=== PATIENT | female | born 1935 | race Caucasian/White ===

== ENCOUNTER 2025-02-20 09:25 | Emergency (ER) | payer OTHER ==
[~2025-02-20] VITALS: Ht 152.4 cm; Wt 50.0 kg
[2025-02-20 09:28] VITALS: TEMP 98.1
[2025-02-20 10:13] LABS: BASOPHILS % (AUTO) 0.6 % (0-1); EOSINOPHILS # (AUTO) 0.2 X10'3 (0-0.9); HEMATOCRIT 33.5 % (35.0-45.0); HEMOGLOBIN 11.4 g/dl (12.0-16.0); LYMPHOCYTES # (AUTO) 1.3 X10'3 (1.1-4.8); LYMPHOCYTES % (AUTO) 15.5 % (21-51); MEAN CORPUSCULAR HEMOGLOBIN 30.1 PG (27.0-31.0); MEAN CORPUSCULAR VOLUME 88.4 FL (78-98); MEAN PLATELET VOLUME 7.6 FL (7.4-10.4); MONOCYTES # (AUTO) 0.9 X10'3 (0-0.9); MONOCYTES % (AUTO) 10.6 % (2-12); NEUTROPHILS # (AUTO) 5.9 X10'3 (1.8-7.7); NEUTROPHILS % (AUTO) 71.3 % (42-75); PLATELET COUNT 259 X10'3 (140-440); RED BLOOD COUNT 3.79 X10'6 (4.20-5.60); RED CELL DISTRIBUTION WIDTH 14.1 % (11.5-14.5); WHITE BLOOD COUNT 8.2 X10'3 (4.5-11.0)
[2025-02-20 10:30] LABS: BILIRUBIN,URINE NEGATIVE (Neg); CLARITY,URINE SLIGHTLY CLOUDY (Clear); COLOR,URINE YELLOW (Yellow); GLUCOSE, URINE NEGATIVE (Neg); KETONES,URINE NEGATIVE (Neg); LEUKOCYTE ESTERASE ,URINE LARGE (Neg); NITRITES, URINE POSITIVE (Neg); OCCULT BLOOD,URINE MODERATE (Neg); PROTEIN,URINE 30 mg/dl (Neg); UROBILINOGEN,URINE 0.2 E.U/dL (0.2-1.0)
[2025-02-20 10:33] LABS: UA COLLECTION TYPE FOLEY CATH
[2025-02-20 10:35] LABS: ALANINE AMINOTRANSFERASE 9 U/L (12-78); ALBUMIN 3.3 G/DL (3.4-5.0); ALBUMIN/GLOBULIN RATIO 0.9 (1.1-1.5); ALKALINE PHOSPHATASE 90 IU/L (46-116); ANION GAP 10 (8-16); ASPARTATE AMINO TRANSFERASE 16 U/L (10-37); BILIRUBIN,TOTAL 0.5 MG/DL (0.1-1.0); BLOOD UREA NITROGEN 25 MG/DL (7-18); BUN/CREATININE RATIO 15.2 (10.0-20.0); CALCIUM 9.4 MG/DL (8.5-10.1); CHLORIDE 105 MMOL/L (99-107); CREATININE 1.64 MG/DL (0.40-0.90); GLUCOSE 109 MG/DL (70-104); LIPASE 36 U/L (16-77); POTASSIUM 4.1 MMOL/L (3.5-5.1); SODIUM 141 MMOL/L (135-145); TOTAL CARBON DIOXIDE 25.7 MMOL/L (24-32); TOTAL PROTEIN 6.9 G/DL (6.4-8.2); eCRCL 17 ML/MIN; eGFR 30 ML/MIN
[2025-02-20 10:36] LABS: BACTERIA,URINE 4+ /HPF (Neg); SQUAMOUS EPITHELIAL CELL,UR FEW /LPF (FEW); WBC,URINE 50-100 /HPF (0-4)
--- NOTE | 2025-02-20 11:00 | Physician Documentation ---
History of Present Illness ~ Chief Complaint: Blood in Urine Stated Complaint: BLOOD IN URINE Time Seen by MD: 09:32 Source: patient (Son), family HPI 89-year-old female presenting for bloody urine. Patient reports feeling unwell. She has history of dementia Medication Reconciliation Scheduled Cephalexin (Cephalexin), 1 CAP PO Q6H Review of Systems Constitutional: Denies: fever Gastrointestinal: Denies: abdominal pain, nausea, vomiting, diarrhea Genitourinary: Reports: dysuria; Denies: flank pain Musculoskeletal: Denies: back pain Physical Exam Vital Signs: Temperature: 98.1, Source: Oral, Heart Rate: 74, Respiratory Rate: 18, BP: 119/65, Pulse Oximetry: 96, Weight: 50.000 Physical Exam Well-appearing no distress resting comfortably in bed No JVD Moist mucous membranes Pulmonary clear to auscultation bilaterally Cardiac no murmur Abdomen is soft nontender Lower extremity no edema Awake alert oriented Progress Progress Note Labs independently interpreted showed no leukocytosis. Positive cystitis Results/Orders Results/Orders Orders - JOANN RODRIGUEZ MD Cult Urine + [place] [address] (02/20/25 10:37) * (A) [place]- Protocol * Q12H@07,19 (02/20/25 10:55) Urinalysis, Cult If Indicated (02/20/25 10:55) Completed Orders - JOANN RODRIGUEZ MD Cbc/Diff (02/20/25 09:54) Lipase (02/20/25 09:54) CMP (02/20/25 09:54) Ua W/Microscopic, Cult If Ind (02/20/25 10:05) Lidocaine 2% Jelly 11ml Syr (Glydo-Lidoc (02/20/25 10:55) Cephalexin Capsule (Keflex Capsule) (02/20/25 11:05) Vital Signs 02/20/25 09:28 Temp 98.1 Pulse 74 Resp 18 B/P (MAP) 119/65 Pulse Ox 96 Laboratory Tests Test 02/20/25 09:46 02/20/25 10:05 White Blood Count 8.2 Red Blood Count 3.79 L Hemoglobin 11.4 L Hematocrit 33.5 L Mean Corpuscular Volume 88.4 Mean Corpuscular Hemoglobin 30.1 Mean Corpuscular Hemoglobin Concent 34.0 Red Cell Distribution Width 14.1 Platelet Count 259 Mean Platelet Volume 7.6 Neutrophils (%) (Auto) 71.3 Lymphocytes (%) (Auto) 15.5 L Monocytes (%) (Auto) 10.6 Eosinophils (%) (Auto) 2.0 Basophils (%) (Auto) 0.6 Neutrophils # (Auto) 5.9 Lymphocytes # (Auto) 1.3 Monocytes # (Auto) 0.9 Eosinophils # (Auto) 0.2 Basophils # (Auto) 0.0 CBC Comment Sodium Level 141 Potassium Level 4.1 Chloride Level 105 Carbon Dioxide Level 25.7 Anion Gap 10 Blood Urea Nitrogen 25 H Creatinine 1.64 H Estimated GFR/1.73 m2 30 BUN/Creatinine Ratio 15.2 Glucose Level 109 H Calcium Level 9.4 Total Bilirubin 0.5 Aspartate Amino Transf (AST/SGOT) 16 Alanine Aminotransferase (ALT/SGPT) 9 L Alkaline Phosphatase 90 Total Protein 6.9 Albumin 3.3 L Globulin 3.6 Albumin/Globulin Ratio 0.9 L Lipase 36 Chemistry Comments Urine Specimen Description [place] cath Urine Color Yellow Urine Clarity Slightly cloudy Urine pH 6.0 Urine Specific Williams 1.020 Urine Protein 30 H Urine Glucose (UA) Negative Urine Ketones Negative Urine Occult Blood Moderate H Urine Nitrite Positive H Urine Bilirubin Negative Urine Urobilinogen 0.2 Urine Leukocyte Esterase Large H Urine RBC 3-10 Urine WBC 50-100 H Urine Squamous Epithelial Cells Few Urine Bacteria 4+ Urine Culture Indicated Indicated Volume Urine Centrifuged 10 ml Urine Comment Medical Decision Making Additional Comment Cystitis, pyelonephritis, kidney stone Departure Disposition: HOME / SELF CARE / HOMELESS Impression: Primary Impression: UTI (urinary tract infection) Qualified Codes: N30.01 - Acute cystitis with hematuria Referrals: NO PRIMARY CARE PROVIDER (PCP) Prescriptions Cephalexin (Cephalexin) 500 Mg Capsule 1 CAP PO Q6H for 7 Days, #28 CAP Prov: JOANN RODRIGUEZ MD 02/20/25 Signature Scribe Signature: na Attestation: JOANN Ybarra MD Feb 20, 2025 11:00
[2025-02-20] MEDS ORDERED: CEPH500C81 PO (11:05)
[2025-02-20] MEDS: LidoCAINE 2% Topical Jelly 11mL syringe (UROJET) TOP ONE (11:25)
[2025-02-20] MEDS: cephalexin 250mg capsule PO ONE (11:26)
[2025-02-20 11:27] VITALS: BP 127/52; PULSE 70; RESP 18; O2SAT 96
== END 2025-02-20 11:29 | disposition home or self-care (01) ==
LOC: ER 09:25
DX: N39.0 Urinary tract infection, site not specified (principal); F03.90 Unspecified dementia, unspecified severity, without behavioral disturbance, psychotic disturbance, mood disturbance, and anxiety
CPT/HCPCS: 36415; 51702; 80053; 81001; 83690; 85025; 87077; 87088; 87186; 99284; A4314